=== PATIENT | male | born 1970 | race Caucasian/White ===

== ENCOUNTER → 2019-06-25 | Outpatient (CLI) | payer BC ==
--- NOTE | 2019-06-26 13:03 | RAD ---
EXAM DESCRIPTION: Ankle,Right 3 Views (accession [id number]), Tibia/Fibula,Right (accession [id number]) CLINICAL HISTORY: 49 years, Male, SWELLING OF ANKLE JOINT COMPARISON: None. TECHNIQUE: AP/lateral/oblique of the Right ankle. Frontal and lateral views right tibia/fibula. FINDINGS: No acute displaced fracture or dislocation. No focal bony erosion or aggressive periosteal reaction seen. The ankle mortise is intact. An ankle joint effusion is present. The right tibia/fibula is intact without acute fracture or dislocation. Diffuse moderate soft tissue swelling surrounds the right ankle. IMPRESSION: 1. No acute osseous abnormality involving the right ankle or tibia/fibula. 2. Moderate soft tissue swelling surrounding the right ankle with ankle joint effusion. Electronically signed by: Elias Byrd DO 06/26/2019 1:01 PM CDT
--- NOTE | 2019-06-26 13:03 | RAD ---
EXAM DESCRIPTION: Ankle,Right 3 Views (accession [id number]), Tibia/Fibula,Right (accession [id number]) CLINICAL HISTORY: 49 years, Male, SWELLING OF ANKLE JOINT COMPARISON: None. TECHNIQUE: AP/lateral/oblique of the Right ankle. Frontal and lateral views right tibia/fibula. FINDINGS: No acute displaced fracture or dislocation. No focal bony erosion or aggressive periosteal reaction seen. The ankle mortise is intact. An ankle joint effusion is present. The right tibia/fibula is intact without acute fracture or dislocation. Diffuse moderate soft tissue swelling surrounds the right ankle. IMPRESSION: 1. No acute osseous abnormality involving the right ankle or tibia/fibula. 2. Moderate soft tissue swelling surrounding the right ankle with ankle joint effusion. Electronically signed by: Elias Byrd DO 06/26/2019 1:01 PM CDT
--- NOTE | 2019-06-26 14:52 | US ---
EXAM DESCRIPTION: Venous,Lower Extremity RT: ULTRASOUND. CLINICAL HISTORY: EDEMA OF LOWER EXT COMPARISON: None Available. TECHNIQUE: Keenan-scale and doppler sonographic evaluation of the deep venous system of the right lower extremity. FINDINGS: Doppler evaluation shows normal color flow and normal phasicity and augmentation of the right common femoral vein, right femoral vein, popliteal vein, greater saphenous vein, junction with the CFV. Also normal color flow and normal phasicity and augmentation of the peroneal, and posterior tibial vein. The right lower extremity deep veins were completely compressible; normal occlusion with transducer pressure. Keenan-scale survey showed no echogenic thrombus within these veins. IMPRESSION: 1. Duplex ultrasound evaluation of the right lower extremity deep venous system showing no evidence of thrombosis. Electronically signed by: Dallin Banks MD 06/26/2019 2:51 PM CDT
== END ==
LOC: LAB.O 14:25
PROVIDERS: ATTEND Nurse Practitioner
DX: R60.0 Localized edema (principal); M25.471 Effusion, right ankle; I10 Essential (primary) hypertension

== ENCOUNTER → 2019-07-22 | Outpatient (CLI) | payer OTHER ==
--- NOTE | 2019-07-22 10:17 | MRI ---
EXAM DESCRIPTION: Ankle,Right CLINICAL HISTORY: ANKLE PAIN, swelling x1 year, no known injury. COMPARISON: Ankle radiograph 06/25/2019. TECHNIQUE: MRI of the right ankle is performed with multiplanar multi sequence imaging, without intravenous contrast. FINDINGS: BONE AND JOINT: Large ankle joint effusion with diffuse thickening and signal heterogeneities to the synovium consistent with synovitis. There are scattered small bony erosion along the anterior/posterior subtalar joint and sinus Tarsi (talar surface) with moderate subcortical bone marrow edema within the sustentaculum talus, anterior subtalar joint, posterior subtalar joint (involving the talus). Minimal increased signal along the lateral talar dome may represent a tiny erosion. Mild degenerative subcortical cystic changes at the medial tibiotalar. Small joint effusion and synovitis also involves the talonavicular joint. TENDONS: Mild distal Achilles tendinosis without focal tear. Mild plantar fasciopathy without significant calcaneal enthesitis. Moderate fluid distends the tendon sheath of the posterior tibialis, flexor digitorum longus and peroneal tendons consistent with tenosynovitis. Peroneus brevis degeneration and likely short segment split tear inferior to the lateral malleolus. The extensor tendons appears intact. LIGAMENTS: Chronic complete tear of the anterior talofibular ligament, partial tear calcaneal fibular ligament and posterior talofibular ligaments. Mild thickening of the anterior/posterior tibiofibular ligaments, suggestion of chronic sprain. The medial ankle ligaments including the superficial and deep fibers of the deltoid ligament is intact. The spring ligament is intact. SOFT TISSUES: Nonspecific mild diffuse soft tissue surrounds the ankle. IMPRESSION: 1. Large right ankle joint effusion with diffuse synovitis. Scattered hindfoot bony erosions involving the subtalar joint, sinus Tarsi with associated bone marrow edema. 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 Gout is also considered although no large tophi formation is identified. 2. Moderate tenosynovitis of the medial and lateral ankle tendons. 3. Peroneus brevis short segment split tear. 4. Chronic complete anterior tibial fibular ligament and partial calcaneofibular ligament tears. Electronically signed by: Elias Byrd DO 07/22/2019 10:15 AM CDT
== END ==
LOC: MRI 06:44
PROVIDERS: ATTEND Orthopaedic Surgery
DX: M93.271 Osteochondritis dissecans, right ankle and joints of right foot (principal); M66.88 Spontaneous rupture of other tendons, other sites; S93.431A Sprain of tibiofibular ligament of right ankle, initial encounter; S93.401A Sprain of unspecified ligament of right ankle, initial encounter; M65.871 Other synovitis and tenosynovitis, right ankle and foot

== ENCOUNTER → 2019-07-27 | Outpatient (CLI) | payer BC | LOC: LAB.O 11:04 | PROVIDERS: ATTEND Orthopaedic Surgery | DX: M25.571 Pain in right ankle and joints of right foot (principal) ==

== ENCOUNTER → 2019-09-04 | Outpatient (CLI) | payer BC | LOC: LAB.O 08:43 | PROVIDERS: ATTEND Orthopaedic Surgery | DX: M25.571 Pain in right ankle and joints of right foot (principal) ==